=== PATIENT | male | born 1955 | race Hispanic/Latino ===

== ENCOUNTER 2018-03-03 06:36 | Day surgery (SDC) | payer MEDICARE ==
[2018-02-24 11:56] VITALS: BP 160/78
[2018-02-24 12:05] LABS: BASOPHILS % (AUTO) 1.2 % (0.0-5.0); EOSINOPHILS % (AUTO) 4.2 % (0.0-8.0); HEMATOCRIT 34.1 % (42-54); LYMPHOCYTES % (AUTO) 16.6 % (21.0-51.0); MEAN CORPUSCULAR HEMOGLOBIN 28.5 pg (27.0-33.0); MEAN CORPUSCULAR HGB CONC 32.7 g/dL (32.0-36.0); MEAN CORPUSCULAR VOLUME 87.1 fL (79-99); MONOCYTES % (AUTO) 10.2 % (3.0-13.0); NEUTROPHILS % (AUTO) 67.8 % (40.0-77.0); PLATELET COUNT (AUTO) 160 K/uL (130-400); RED BLOOD CELL COUNT(AUTO) 3.91 MIL/uL (4.50-6.20); RED CELL DISTRIBUTION WIDTH 18.5 % (11.0-15.5); WHITE BLOOD COUNT (AUTO) 4.2 K/uL (4.8-10.8)
[2018-02-24 12:12] LABS: APPEARANCE,URINE Clear (CLEAR); BILIRUBIN,URINE Negative (NEGATIVE); COLOR,URINE Yellow (YELLOW); GLUCOSE, URINE (UA) 500 mg/dL (NEGATIVE); KETONES,URINE Negative (NEGATIVE); LEUKOCYTE ESTERASE ,URINE Negative (NEGATIVE); NITRATE,URINE Negative (NEGATIVE); OCCULT BLOOD,URINE Negative (NEGATIVE); PH,URINE >=9.0 (5.0-8.0); PROTEIN,URINE 300 (NEGATIVE); UROBILINOGEN,URINE 0.2 mg/dL (0.2-1.0)
[2018-02-24 12:20] LABS: INR 0.97 (0.85-1.15); PARTIAL THROMBOPLASTIN TIME 27.3 SEC (26.3-35.5); PROTHROMBIN TIME 10.2 SEC (9.6-11.6)
[2018-02-24 12:26] LABS: CREATININE 4.9 mg/dL (0.5-1.5); POTASSIUM 5.9 mmol/L (3.5-5.1)
[2018-02-24 12:35] LABS: BACTERIA,URINE Rare /HPF (None Seen); RBC,URINE 0-1 /HPF (0-1); SQUAMOUS EPITHELIAL CELL,UR Rare /HPF (0-2); WBC,URINE 0-1 /HPF (0-1)
--- NOTE | 2018-03-02 10:41 | NUR ---
LABS FAXED AND REPORTED ABNORMAL POTASSIUM TO [facility]. SHE WILL INFORM IRASEMA PEREZ.
--- NOTE | 2018-03-02 12:26 | NUR ---
LABS PER DR. BOWSER, REPEAT BMP IN AM OF PROCEDURE.
[~2018-03-03] VITALS: Ht 167.6 cm; Wt 58.4 kg
[2018-03-03] VITALS (11 sets, daily range): BP systolic 150–164; BP diastolic 70–78
[~2018-03-03 06:36] MED LIST: SODIUM CHLORIDE 0.9% 500ML 500 ML IV SCH
[2018-03-03 07:07] LABS: CREATININE 5.1 mg/dL (0.5-1.5); POTASSIUM 4.4 mmol/L (3.5-5.1)
[2018-03-03] MEDS ORDERED: SODI650T PO (07:31)
[2018-03-03] MEDS ORDERED: INSU100V12 SQ (07:31)
[2018-03-03] MEDS ORDERED: FURO40TA5 PO (07:31)
[2018-03-03] MEDS ORDERED: LEVO150T11 PO (07:31)
[2018-03-03] MEDS ORDERED: LISI40TA4 PO (07:31)
[2018-03-03] MEDS ORDERED: ASPI-555 PO (07:31)
[2018-03-03] MEDS ORDERED: CALC667C10 PO (07:31)
[2018-03-03] MEDS ORDERED: ATOR40TA69 PO (07:39)
[2018-03-03] MEDS ORDERED: LIDOCAINE HCL 2% 20ML ONE (07:44)
[2018-03-03] MEDS ORDERED: IOHEXOL-350 50ML VIAL IV ONE (07:44)
[2018-03-03] MEDS ORDERED: IOHEXOL 350 MG/ML 100ML INFUS..BTL IV ONE (07:44)
[2018-03-03] MEDS ORDERED: BIVALIRUDIN 250 MG/VIAL IV ONE (07:44)
[2018-03-03] MEDS ORDERED: NITROGLYCERIN 5 MG/ML 10 ML VIAL IV ONE (07:44)
[2018-03-03] MEDS ORDERED: LABETALOL HCL 5 MG/ML 20ML VIAL IV ONE (08:41)
[2018-03-03] MEDS ORDERED: SODIUM CHLORIDE 0.9% 1000ML 1,000 ML IV ONE (14:35)
== END 2018-03-03 14:20 | disposition home or self-care (01) ==
LOC: DAH 06:36
PROVIDERS: ATTEND Internal Medicine Cardiovascular Disease
DX: I25.10 Atherosclerotic heart disease of native coronary artery without angina pectoris (principal); I25.5 Ischemic cardiomyopathy; I10 Essential (primary) hypertension; Z79.899 Other long term (current) drug therapy; Z98.890 Other specified postprocedural states; Z79.4 Long term (current) use of insulin; E11.22 Type 2 diabetes mellitus with diabetic chronic kidney disease; N18.6 End stage renal disease; Z99.2 Dependence on renal dialysis; I21.3 ST elevation (STEMI) myocardial infarction of unspecified site; Z98.41 Cataract extraction status, right eye; Z98.42 Cataract extraction status, left eye; E78.00 Pure hypercholesterolemia, unspecified
CPT/HCPCS: 36415 ×2; 71045; 80048 ×2; 81001; 82948 ×2; 85025; 85610; 85730; 93005; 93458; A4606; C1760; C1894; J1644; J3490 ×3; J7030; Q9965 ×2; Q9967 ×2; J0583